=== PATIENT | male | born 1965 | race Caucasian/White ===

== ENCOUNTER → 2016-06-07 | Outpatient (CLI) | payer OTHER ==
--- NOTE | 2016-06-07 13:05 | DIAGNOSTIC IMAGING REPORT ---
RENAL ULTRASOUND CLINICAL HISTORY: Multiple renal cysts. COMPARISON STUDY: Renal ultrasound December 02, 2015. TECHNIQUE: Sonography of the kidneys and the urinary bladder was performed. FINDINGS: The right kidney measures 12.3 x 5.5 x 5.8 cm and the left measures 12 x 6.2 x 6 cm. There is no hydronephrosis. Renal echogenicity, size and cortical thickness are normal. A 1.1 cm cystic lesion within the upper pole of the right kidney likely contains a small calcification. This is unchanged. Note is made of a 0.9 cm round echogenic lesion within the upper pole if the right kidney which is also unchanged. No additional renal lesions are present. IMPRESSION: 1. No hydronephrosis. 2. No change in a 9 mm echogenic lesion within the upper pole of the right kidney. This likely reflects an angiomyolipoma. A follow-up renal ultrasound in one year is recommended. 3. No change in a 1.1 cm cyst within the upper pole of the right kidney that contains a small calcification. Electronically signed by: Reg Pleitez M.D. 06/07/2016 1:04 PM Dictated Date/Time: 06/07/2016 12:55 PM
== END | disposition home or self-care (01) ==
LOC: C.ULTRBC 12:08
PROVIDERS: ATTEND Family Medicine
DX: Q61.02 Congenital multiple renal cysts (principal); N28.9 Disorder of kidney and ureter, unspecified

== ENCOUNTER → 2016-11-28 | Outpatient (CLI) | payer OTHER ==
[2016-11-28 09:33] LABS: BASO % 0.7 %; BASO ABS # 0.07 K/uL (0-0.2); COMPLETE YES; EOS % 4.6 %; HEMATOCRIT 47.5 % (42-52); IG% 0.2 %; LYMPH % 23.4 %; LYMPH ABS # 2.31 K/uL (1.2-3.4); MEAN CELL VOLUME 95.2 fL (80-100); MEAN CORPUSCULAR HEMOGLOBIN 32.1 pg (25-34); MEAN CORPUSCULAR HGB CONC 33.7 g/dl (32-36); MEAN PLATELET VOLUME 10.3 fL (7.4-10.4); MONO % 6.1 %; PLATELET COUNT 254 K/uL (130-400); RED BLOOD COUNT 4.99 M/uL (4.7-6.1); WHITE BLOOD COUNT 9.87 K/uL (4.8-10.8)
[2016-11-28 10:27] LABS: ALT/SGPT 39 U/L (12-78); AST/SGOT 27 U/L (15-37); BLOOD UREA NITROGEN 15 mg/dl (7-18); BUN/CREATININE RATIO 14.9 (10-20); CALCIUM 9.1 mg/dl (8.5-10.1); CARBON DIOXIDE 27 mmol/L (21-32); CHLORIDE 109 mmol/L (98-107); CREATININE 0.98 mg/dl (0.60-1.40); GLUCOSE 97 mg/dl (70-99); POTASSIUM 3.8 mmol/L (3.5-5.1); SODIUM 142 mmol/L (136-145)
[2016-11-28 10:30] LABS: ALB/GLOB RATIO 1.2 (0.9-2); ALKALINE PHOSPHATASE 135 U/L (45-117); CHOLESTEROL 176 mg/dl (0-200); HDL CHOLESTEROL 59 mg/dl; LDL CHOLESTEROL CALCULATED 97 mg/dl; TRIGLYCERIDES 101 mg/dl (0-150); VERY LOW DENSITY LIPOPROT CALC 20 mg/dl
== END | disposition home or self-care (01) ==
LOC: C.LAB1850 08:41
PROVIDERS: ATTEND Physician Assistant
DX: E78.5 Hyperlipidemia, unspecified (principal); K76.0 Fatty (change of) liver, not elsewhere classified; Z13.0 Encounter for screening for diseases of the blood and blood-forming organs and certain disorders involving the immune mechanism

== ENCOUNTER → 2017-02-02 | Outpatient (CLI) | payer OTHER | END | disposition home or self-care (01) | LOC: C.LAB1850 08:25 | PROVIDERS: ATTEND Physician Assistant Medical | DX: Z00.00 Encounter for general adult medical examination without abnormal findings (principal); E78.5 Hyperlipidemia, unspecified; I10 Essential (primary) hypertension ==

== ENCOUNTER 2017-04-28 23:10 | Emergency (ER) | payer OTHER ==
[~2017-04-28] VITALS: Ht 170.2 cm; Wt 82.4 kg
[2017-04-28 23:13] VITALS: TEMP 36.9; Ht 170.2 cm; Wt 82.4 kg
[2017-04-28] MEDS ORDERED: ONDANSETRON INJ 2 MG/ML 2 ML VIAL IV STA (23:27)
[2017-04-28] MEDS ORDERED: MoRPHine SULFATE 4 MG/ML 1 ML CARP\\VIAL IV STA (23:27)
[2017-04-29 00:01] LABS: BASO % 0.3 %; BASO ABS # 0.03 K/uL (0-0.2); EOS % 1.1 %; EOS ABS # 0.13 K/uL (0-0.5); HEMATOCRIT 44.5 % (42-52); HEMOGLOBIN 16.2 g/dL (14.0-18.0); IG# 0.03 K/uL (0.00-0.02); LYMPH % 15.2 %; LYMPH ABS # 1.78 K/uL (1.2-3.4); MEAN CELL VOLUME 93.1 fL (80-100); MEAN CORPUSCULAR HEMOGLOBIN 33.9 pg (25-34); MEAN CORPUSCULAR HGB CONC 36.4 g/dl (32-36); MEAN PLATELET VOLUME 10.1 fL (7.4-10.4); MONO % 4.6 %; MONO ABS # 0.54 K/uL (0.11-0.59); NEUT % 78.5 %; NEUT ABS # 9.21 K/uL (1.4-6.5); PLATELET COUNT 257 K/uL (130-400); RED CELL DISTRIBUTION WIDTH CV 12.3 % (11.5-14.5); WHITE BLOOD COUNT 11.72 K/uL (4.8-10.8)
[2017-04-29 00:19] LABS: ALBUMIN 4.1 gm/dl (3.4-5.0); ALT/SGPT 45 U/L (12-78); AST/SGOT 23 U/L (15-37); BLOOD UREA NITROGEN 15 mg/dl (7-18); CALCIUM 9.1 mg/dl (8.5-10.1); CARBON DIOXIDE 26 mmol/L (21-32); CREATININE 0.94 mg/dl (0.60-1.40); GLUCOSE 94 mg/dl (70-99); LIPASE 245 U/L (73-393); SODIUM 142 mmol/L (136-145)
[2017-04-29 00:24] LABS: ALKALINE PHOSPHATASE 116 U/L (45-117); TOTAL PROTEIN 7.5 gm/dl (6.4-8.2)
[2017-04-29] MEDS ORDERED: OPTIRAY 320 IV PRN (01:30)
[2017-04-29] MEDS ORDERED: LPT10 PO (02:47)
[2017-04-29] MEDS ORDERED: CHLO12TA2 PO (02:49)
[2017-04-29] MEDS ORDERED: ONDANSETRON HOME PACK 4MG OD TAB PO ONE (03:00)
[2017-04-29] MEDS ORDERED: OXYCODONE IR HOME PACK PO ONE (03:00)
[2017-04-29 03:18] VITALS: BP 184/109; PULSE 81; O2SAT 95
--- NOTE | 2017-04-29 03:34 | EMERGENCY ROOM VISIT NOTE ---
History First contact with patient: 23:15 Chief Complaint: ABDOMINAL PAIN Stated Complaint: SEVERE ABD PAIN Nursing Triage Summary: pt c/o lower right abd pain that began earlier today and became worse throughout the day. states he has had diarrhea intermittently for "a couple days." denies n/v. pt alert and oriented x4. pmh elevated cholesterol. History of Present Illness The patient is a 52 year old male who presents to the Emergency Room with complaints of right lower abdominal pain for the past day described as aching, ranging in severity currently 4-10 that occasionally radiates to his testicle. Nothing makes it better or worse. He has had kidney stones before but this feels different. Patient states occasionally he has chest pain for the past few months. Nothing prolonged. Patient denies dyspnea, fever, chills, back pain, urinary symptoms, penile pain. No injury to the area. He is tolerating by mouth fluids and food. Review of Systems See HPI for pertinent positives & negatives. A total of 10 systems reviewed and were otherwise negative. Past Medical/Surgical History Kidney stones Social History Smoking Status: Current Every Day Smoker Drug Use: none Marital Status: Housing Status: lives with family Occupation Status: employed Current/Historical Medications Scheduled Atorvastatin (Atorvastatin Calcium), 10 MG PO DAILY Scheduled PRN Chlorpheniramine Maleate (Chlor-Trimeton Allergy), 12 MG PO DAILY PRN for Allergic Reaction Physical Exam Vital Signs Date Time Temp Pulse Resp B/P (MAP) Pulse Ox O2 Delivery O2 Flow Rate FiO2 04/29/17 03:18 81 20 184/109 95 04/29/17 02:38 80 18 145/103 96 Room Air 04/29/17 01:44 89 20 169/99 98 Room Air 04/29/17 00:38 88 20 146/100 95 Room Air 04/28/17 23:13 36.9 82 18 170/99 95 Room Air Physical Exam VITALS: Vitals are noted on the nurse's note and reviewed by myself. Vital signs hypertensive GENERAL: Pleasant male, in no acute distress, nondiaphoretic, well-developed well-nourished. SKIN: The skin was without rashes, erythema, edema, or bruising. There is no tenting of the skin. Capillary reflex less than 2 seconds. HEAD: Normocephalic atraumatic. EARS: External auditory canals clear EYES: Pupils equal round and reactive to light and accommodation. Conjunctivae without injection, sclerae without icterus. Extraocular movements intact. NOSE: Patent, turbinates without inflammation or discharge. MOUTH: Mucous membranes moist. Pharynx without erythema or exudate. Uvula midline. Airway patent. Tongue does not deviate. NECK: Supple without nuchal rigidity. No lymphadenopathy. No thyromegaly. Cervical spine is nontender. No JVD. HEART: Regular rate and rhythm without murmurs gallops or rubs. LUNGS: Clear to auscultation bilaterally without wheezes, rales or rhonchi. No dullness to percussion. No retractions or accessory muscle use. ABDOMEN: Positive bowel sounds x 4. Normal tympanic percussion. Soft, minimally tender right lower quadrant, no CVA tenderness, without masses or organomegaly. De Jesus sign negative. No guarding or rebound tenderness. exam: Normal male genitalia. No testicular pain. Sheet Folder present MUSCULOSKELETAL: No muscle atrophy, erythema, or edema noted. NEURO: Patient was alert and oriented to person place and time. Normal sensation to light and sharp touch. No focal neurological deficits. Medical Decision & Procedures Laboratory Results 04/28/17 23:45 Red Blood Count 4.78, Mean Corpuscular Volume 93.1, Mean Corpuscular Hemoglobin 33.9, Mean Corpuscular Hemoglobin Concent 36.4, Mean Platelet Volume 10.1, Neutrophils (%) (Auto) 78.5, Lymphocytes (%) (Auto) 15.2, Monocytes (%) (Auto) 4.6, Eosinophils (%) (Auto) 1.1, Basophils (%) (Auto) 0.3, Neutrophils # (Auto) 9.21, Lymphocytes # (Auto) 1.78, Monocytes # (Auto) 0.54, Eosinophils # (Auto) 0.13, Basophils # (Auto) 0.03 04/28/17 23:45 Test 04/28/17 23:45 04/28/17 23:52 04/29/17 00:40 White Blood Count 11.72 K/uL (4.8-10.8) Red Blood Count 4.78 M/uL (4.7-6.1) Hemoglobin 16.2 g/dL (14.0-18.0) Hematocrit 44.5 % (42-52) Mean Corpuscular Volume 93.1 fL (80-100) Mean Corpuscular Hemoglobin 33.9 pg (25-34) Mean Corpuscular Hemoglobin Concent 36.4 g/dl (32-36) Platelet Count 257 K/uL (130-400) Mean Platelet Volume 10.1 fL (7.4-10.4) Neutrophils (%) (Auto) 78.5 % Lymphocytes (%) (Auto) 15.2 % Monocytes (%) (Auto) 4.6 % Eosinophils (%) (Auto) 1.1 % Basophils (%) (Auto) 0.3 % Neutrophils # (Auto) 9.21 K/uL (1.4-6.5) Lymphocytes # (Auto) 1.78 K/uL (1.2-3.4) Monocytes # (Auto) 0.54 K/uL (0.11-0.59) Eosinophils # (Auto) 0.13 K/uL (0-0.5) Basophils # (Auto) 0.03 K/uL (0-0.2) RDW Standard Deviation 42.0 fL (36.4-46.3) RDW Coefficient of Variation 12.3 % (11.5-14.5) Immature Granulocyte % (Auto) 0.3 % Immature Granulocyte # (Auto) 0.03 K/uL (0.00-0.02) Anion Gap 8.0 mmol/L (3-11) Est Creatinine Clear Calc Drug Dose 96.6 ml/min Estimated GFR () 109.1 Estimated GFR (Non- 94.2 BUN/Creatinine Ratio 16.0 (10-20) Calcium Level 9.1 mg/dl (8.5-10.1) Total Bilirubin 0.3 mg/dl (0.2-1) Direct Bilirubin < 0.1 mg/dl (0-0.2) Aspartate Amino Transf (AST/SGOT) 23 U/L (15-37) Alanine Aminotransferase (ALT/SGPT) 45 U/L (12-78) Alkaline Phosphatase 116 U/L (45-117) Troponin I < 0.015 ng/ml (0-0.045) Total Protein 7.5 gm/dl (6.4-8.2) Albumin 4.1 gm/dl (3.4-5.0) Lipase 245 U/L (73-393) Bedside Troponin I < 0.030 ng/ml (0-0.045) Urine Color YELLOW Urine Appearance TURBID (CLEAR) Urine pH 8.5 (4.5-7.5) Urine Specific [place] 1.019 (1.000-1.030) Urine Protein NEG (NEG) Urine Glucose (UA) NEG (NEG) Urine Ketones NEG (NEG) Urine Occult Blood TRACE (NEG) Urine Nitrite NEG (NEG) Urine Bilirubin NEG (NEG) Urine Urobilinogen NEG (NEG) Urine Leukocyte Esterase NEG (NEG) Urine WBC (Auto) 1-5 /hpf (0-5) Urine RBC (Auto) 5-10 /hpf (0-4) Urine Hyaline Casts (Auto) 1-5 /lpf (0-5) Urine Epithelial Cells (Auto) 5-10 /lpf (0-5) Urine Bacteria (Auto) NEG (NEG) Medications Administered Medications (Trade) Dose Ordered Sig/Damaris Route Start Time Stop Time Status Last Admin Dose Admin Oxycodone HCl (Roxicodone Immediate Rel 5MG Home Pack) 1 homepack UD ONCE PO 04/29/17 03:00 04/29/17 03:01 DC 04/29/17 03:11 1 HOMEPACK Ondansetron HCl (ZOFRAN ODT 4MG Home Pack) 1 homepack UD ONCE PO 04/29/17 03:00 04/29/17 03:01 DC 04/29/17 03:11 1 HOMEPACK ED Course Prior records/ancillary studies reviewed. Triage Nursing notes reviewed. Additional history obtained from family. The patient's history was concerning for abdominal pain. Differential diagnosis: Etiologies such as appendicitis, diverticulitis, PUD, biliary pathology, UTI, pancreatitis, obstruction, mesenteric ischemia, aortic pathology, infections, inflammatory bowel disease, renal colic, as well as others were entertained. Physical examination findings: As above. Patient declined pain meds On reassessment the patient felt better. Diagnostics interpreted by me: ECG: Normal sinus, normal intervals, no acute ST-T wave changes. Impression normal sinus rhythm interpreted by myself The labs revealed negative urine. Stable H&H. Urine with hematuria Imaging studies: Chest x-ray with no acute consolidation, pneumothorax. My interpretation Ultrasound and CAT scan read by stat radiology concerning for right renal colic Exam and history seem consistent with right renal colic. Patient's pain was managed. He did not even need any pain meds. He is advised to strain his urine until the stone passes and take medicines as directed and to follow-up urology a few days or here in the ER sooner for fevers, severe pain, vomiting, worsening signs or symptoms or as needed. By the evaluation outlined above emergent etiologies such as appendicitis, diverticulitis, PUD, biliary pathology, UTI, pancreatitis, obstruction, mesenteric ischemia, aortic pathology, infections, inflammatory bowel disease, as well as others were deemed relatively unlikely. The pt informed about the findings as listed above. All questions were answered and pleased with the treatment. Return instructions were outlined and the patient was discharged in stable condition. Outpatient prescription management: Home pack Zofran and OxyIR Referral: The patient was referred back to their primary care physician and urology for follow-up in 2 to 3 days for a recheck of the current condition. Case reviewed with my attending Medical Decision As above Medication Reconcilliation Current Medication List: was personally reviewed by me Blood Pressure Screening Patient's blood pressure: Elevated blood pressure Blood pressure disposition: Referred to PCP Impression Primary Impression: Renal colic on right side Departure Information Dispostion Home / Self-Care Condition GOOD Referrals Antwon Cagle M.D. Forms Call Back Authorization, HOME CARE DOCUMENTATION FORM, IMPORTANT VISIT INFORMATION Patient Instructions Kidney Stones - [facility], [facility] Additional Instructions DO NOT drive, drink alcohol, operate machinery, or perform dangerous activities today. You were given medications in the ER that can affect your ability to safely function or operate a vehicle. Oxycodone Immediate Release (OxyIR) 5mg: Take 1-2 pills every four hours for pain. Avoid alcohol, operating machinery or dangerous equipment, working on ladders or roofs, DRIVING, or situations where being under the influence may be dangerous. It is recommended to use an [id number] stool softener such as Colace, 100mg twice daily while taking this medication to avoid constipation. Zofran 4 mg: Take one every six hours as needed for nausea. Avoid alcohol, operating machinery or dangerous equipment, working on ladders or roofs, DRIVING , or situations where being under the influence may be dangerous. Ibuprofen(Motrin, Advil) may be used for fever or pain. Use 600mg every six hours as needed. Take with food. Avoid using more than 2400mg in a 24 hour period. Do not use 2400mg per day for more than three consecutive days without physician direction. Prolonged inappropriate use can lead to stomach upset or ulcers. This medication can be taken if you need to drive, work, or perform activities which may be dangerous when taking narcotic pain medication. (AND/OR) Acetaminophen(Tylenol) may be used for fever or pain. Use 1000mg every six hours as needed. Avoid using more than 3000mg in a 24 hour period. This medication can be taken if you need to drive, work, or perform activities which may be dangerous when taking narcotic pain medication. Strain your urine and collect all the stones or debris for the urologists. Rest and avoid strenuous activity until your stone passes and symptoms resolve. Drink plenty of fluids. Continue current medications. Return to the ER for worsening abdominal or back pain, vomiting, fevers, passing out, or as needed. Follow up with urology in 2-3 days, call for an appointment.
--- NOTE | 2017-04-29 07:05 | DIAGNOSTIC IMAGING REPORT ---
CHEST ONE VIEW PORTABLE CLINICAL HISTORY: Chest pain. COMPARISON STUDY: Chest radiograph March 05, 2007. FINDINGS: Lung volumes are normal. No pneumothorax or pleural effusion is noted. Cardiomediastinal silhouette is normal. Pulmonary vascularity is normal. No consolidation is identified. IMPRESSION: No acute cardiopulmonary findings. Electronically signed by: Reg Pleitez M.D. 04/29/2017 7:04 AM Dictated Date/Time: 04/29/2017 7:03 AM
--- NOTE | 2017-04-29 07:19 | DIAGNOSTIC IMAGING REPORT ---
APPENDIX ULTRASOUND HISTORY: Right lower quadrant abdominal pain. COMPARISON: None. FINDINGS: Transabdominal scanning of the right lower quadrant was performed. The appendix was not identified. There are no fluid collections or masses within the right lower quadrant. IMPRESSION: Nonvisualization of the appendix. This study is nondiagnostic in regards to evaluation for acute appendicitis. Electronically signed by: Reg Pleitez M.D. 04/29/2017 7:17 AM Dictated Date/Time: 04/29/2017 7:17 AM
--- NOTE | 2017-04-29 07:20 | DIAGNOSTIC IMAGING REPORT ---
SCROTAL ULTRASOUND CLINICAL HISTORY: Right-sided testicular pain. Possible epididymitis. COMPARISON STUDY: None. TECHNIQUE: Grayscale and color and duplex Doppler sonography of the scrotum was performed. FINDINGS: The right testis measures 4.5 x 2.4 x 3.2 cm and the left measures 4.7 x 2.4 x 2.8 cm. There is no testicular mass. Color flow within each testis is symmetric. There is no evidence for epididymitis. There are small bilateral hydroceles and small bilateral epididymal head cysts. IMPRESSION: 1. Normal sonographic appearance of the testes. 2. No evidence for epididymitis. 3. Small bilateral hydroceles and small bilateral epididymal head cysts. Electronically signed by: Reg Pleitez M.D. 04/29/2017 7:18 AM Dictated Date/Time: 04/29/2017 7:17 AM
--- NOTE | 2017-04-29 07:40 | DIAGNOSTIC IMAGING REPORT ---
CT OF THE ABDOMEN AND PELVIS WITH CONTRAST CLINICAL HISTORY: Right lower quadrant abdominal pain. COMPARISON STUDY: Appendix ultrasound April 29, 2017 and renal ultrasound June 07, 2016. TECHNIQUE: Following IV administration of 93 mL of Optiray-320, axial images of the abdomen and pelvis were obtained from the lung bases to the proximal femurs. Images were reviewed in the axial, sagittal, and coronal planes. IV contrast was administered without complication. A dose lowering technique was utilized adhering to the principles of ALARA. CT DOSE: 404.39 mGy.cm FINDINGS: A 4 mm calculus at the right ureterovesical junction results in mild right hydroureteronephrosis. No additional urinary calculi are identified on this contrast enhanced examination. A 9 mm hypodense lesion within the midpole of the right kidney was shown to represent a cyst on prior ultrasound. A 9 mm intermediate attenuation lesion within the posterior cortex of the upper pole of the right kidney shown on axial image 155 of 466 corresponds to the echogenic lesion shown on prior ultrasound. The liver, spleen, adrenal glands, left kidney and pancreas are normal. There is no evidence for a bowel obstruction. The appendix is normal. There is no lymphadenopathy or abscess. Fat-containing bilateral inguinal hernias are noted. IMPRESSION: 1. 4 mm calculus at the right ureterovesical junction which results in mild right hydroureteronephrosis. 2. 9 mm intermediate attenuation lesion within the posterior cortex of the upper pole of the right kidney which corresponds to the echogenic lesion shown on prior ultrasound. This favors an angiomyolipoma given stability and sonographic appearance however a follow-up renal ultrasound in 6 months to ensure stability is recommended. Electronically signed by: Reg Pleitez M.D. 04/29/2017 7:39 AM Dictated Date/Time: 04/29/2017 7:33 AM
== END 2017-04-29 03:20 | disposition home or self-care (01) ==
LOC: C.EDB 23:11 → C.EDA 04-29 03:20
DX: N23 Unspecified renal colic (principal); F17.200 Nicotine dependence, unspecified, uncomplicated; Z87.442 Personal history of urinary calculi

== ENCOUNTER → 2017-05-28 | Outpatient (CLI) | payer OTHER ==
[~2017-05-28] MED LIST: CHLO12TA2 PO; LPT10 PO
--- NOTE | 2017-05-28 12:59 | DIAGNOSTIC IMAGING REPORT ---
(RENAL)RETROPERITON COMP HISTORY: Renal cysts Q61.02 Multiple renal cysts1 year follow-up ultrasound scheduled COMPARISON: 06/07/2016. 04/29/2017. FINDINGS: Right kidney: Maximum dimension 12 cm. 9 mm benign angiomyolipoma upper pole. 1.0 cm midpole cyst with a small calcification. This is unchanged. Normal corticomedullary differentiation and cortical thickness. Left kidney: Maximum dimension 11.9 cm. No evidence for hydronephrosis. Normal corticomedullary differentiation and cortical thickness. Bladder: No bladder wall thickening. The bilateral ureteral jets were identified. IMPRESSION: 1. Stable 9 mm benign angiomyolipoma upper pole right kidney. 2. 1 cm mid/upper pole cyst with associated small calcification. This is unchanged from the prior exam. 3. Normal left kidney. The above report was generated using voice recognition software. It may contain grammatical, syntax or spelling errors. Electronically signed by: Ed Irvin M.D. 05/28/2017 12:58 PM Dictated Date/Time: 05/28/2017 12:54 PM
== END | disposition home or self-care (01) ==
LOC: C.ULTRBC 12:25
PROVIDERS: ATTEND Physician Assistant
DX: Q61.02 Congenital multiple renal cysts (principal); D17.71 Benign lipomatous neoplasm of kidney

== ENCOUNTER → 2017-06-15 | Outpatient (CLI) | payer OTHER ==
[2017-06-15 09:49] LABS: ALBUMIN 3.9 gm/dl (3.4-5.0); ALT/SGPT 47 U/L (12-78); BLOOD UREA NITROGEN 17 mg/dl (7-18); CALCIUM 8.9 mg/dl (8.5-10.1); CARBON DIOXIDE 26 mmol/L (21-32); CREATININE 1.09 mg/dl (0.60-1.40); GLUCOSE 92 mg/dl (70-99); POTASSIUM 3.9 mmol/L (3.5-5.1); SODIUM 140 mmol/L (136-145)
[2017-06-15 10:00] LABS: ALKALINE PHOSPHATASE 101 U/L (45-117); AST/SGOT 32 U/L (15-37); TOTAL PROTEIN 6.9 gm/dl (6.4-8.2)
== END | disposition home or self-care (01) ==
LOC: C.LAB1850 08:01
PROVIDERS: ATTEND Physician Assistant Medical
DX: E78.5 Hyperlipidemia, unspecified (principal); K76.0 Fatty (change of) liver, not elsewhere classified; Z00.00 Encounter for general adult medical examination without abnormal findings

== ENCOUNTER → 2017-06-25 | Outpatient (CLI) | payer OTHER | END | disposition home or self-care (01) | LOC: C.LABSPEC 11:16 | PROVIDERS: ATTEND Urology | DX: N20.0 Calculus of kidney (principal) ==

== ENCOUNTER → 2017-07-03 | Outpatient (CLI) | payer OTHER ==
--- NOTE | 2017-07-04 05:54 | PAP/PSG TECHNICIAN REPORT ---
[facility] [employer] Polysomnogram Report Study name: None Report date: 07/04/2017 Study date: 07/03/2017 Referring Physician: Anabell Foreman PA-C Name: MARIZOL CORBIN Interpreting Physician: Alberto Santo D.O. Date of : 1965 [employer] Design Engineer: Keisha Jimenez [facility]. Sex: Male Age: 52 StudyType: PSG Weight: 187 lbs Height: 52 years, Height 5' 9" Neck Circum: 43 cm BMI: 27.61 Medications: Atorvastatin 10 mg,. Triamcinolone Acetonide 0.1%, Patient History 52 yr. old male here for a diagnostic sleep study with ETC02 in room 6. Patient complains of HTN and loud snoring. ESS . Parameters Monitored NPSG: E1-M2, E2-M1, Fp1-M2, Fp2-M1, F3-M2, F4-M2, F4-M1, C3-M2, C4-M2, C4-M1, O1-M2, O2-M2, O2-M1, T3-M2, T4-M1, P3-M2, P4-M1, CHIN1, CHIN2, HR, EKG, Legs, PFLOW, SNOR, FLOW, CFLOW, Tidal Volume, THOR, ABDO, SpO2, PLTH, CPRESS, ETCO2 Wave, ETCO2, pH Sleep Architecture Sleep Stages Time at Lights Off 10:55:08 PM STAGES Time (min.) TST (%) Time at Lights On 5:41:38 AM Wake 54.0 -- Total Recording Time (TRT) 407.00 min. N1 19.5 6 Total Sleep Period (TSP) 372.5 min. N2 211.5 60 Total Sleep Time (TST) 352.5min. N3 42.5 12 Awake Time 54.0 min. REM 79.0 22 Wake after Sleep Onset 20.0 min. Sleep Efficiency (SE) 87 % Sleep Onset Latency (ARNIE) 34.0 min. Number of Stage 1 Shifts None Awakenings 14 Stage Changes 76 Number of REM periods 13 REM 79.0 22 REM Latency 57.0 min. NREM 273.5 78 Body Position Analysis Supine Right Left Side Prone Vertical Total Sleep Time (min.) 406.5 0.0 0.0 0.00 0.0 0.0 Total Sleep Time (%) 100% 0% 0% 0 0% N/A% Total Sleep Time REM (min.) 79.0 0.0 0.0 None 0.0 0.0 Total Sleep Time NREM (min.) 273.5 0.0 0.0 None 0.0 0.0 Intermittent Wake (min.) 54.0 0.0 0.0 None 0.0 0.0 Total Sleep Period (%) 100% None None None None None Arousals Myoclonus (PLM) * Events Count Index Events Count Index Spontaneous 3 1 Events Awake (PLMW) 67 74.4 Respiratory 7 2.0 Events Asleep w/ Arousal (PLMA) 21 3.6 PLM 21 4 Events Asleep w/o Arousal (PLMS) 72 12.3 Snoring 15 3 Total Asleep 93 15.8 Total 46 8 Total 160 24 Respiratory Analysis * CA OA MA CH H RERA Total Count 0 0 0 0 122 1 122 Index 0.0 0.0 0.0 0 20.8 0 20.9 Mean Duration 0.0 0.0 0.0 0.00 20.1 19.8 20.1 Longest Duration 0.0 0.0 0.0 0.00 0.0 19.8 59.8 Respiratory Event Summary Total Supine ~Supine Right Left Prone REM NREM Apneas Count 0 0 N/A N/A N/A N/A 0 0 Index 0.0 0 N/A N/A N/A N/A 0 0 Hypopneas (4% Desat) Count 122 122 N/A N/A N/A N/A 45 77 Index 20.8 20.8 N/A N/A N/A N/A 34.2 16.9 Apneas & All Hypopneas Count 122 122 N/A N/A N/A N/A 45 77 Index 20.8 21 N/A N/A N/A N/A 34.2 16.9 Respiratory Events (Breakdown Man+All Hyp+RERA) Count 122 123 N/A N/A N/A N/A 45 77 Index 20.9 21 N/A N/A N/A N/A 34.2 17.1 Respiratory Related Arousal Count 7 123 N/A N/A N/A N/A 5 7 Index 2.0 2 N/A N/A N/A N/A 4 2 Snoring Analysis Supine Right Left Prone REM NREM Total Snore duration 53.2 min Snores count 1,832 N/A N/A N/A 317 1,515 1,832 Snore mean duration 1.7 Sec Snores index 312 N/A N/A N/A 240.8 332.4 311.8 TST with snoring (%) 15.1% SpO2 Analysis Total REM NREM Awake <50% 0.0 min. 0.0 min. 0.0 min. 0.0 min. 51 - 60% 0.0 min. 0.0 min. 0.0 min. 0.0 min. 61 - 70% 0.0 min. 0.0 min. 0.0 min. 0.0 min. 71 - 80% 0.2 min. 0.2 min. 0.0 min. 0.0 min. 81 - 90% 133.8 min. 30.7 min. 98.9 min. 4.3 min. 91 - 100% 272.4 min. 48.1 min. 174.6 min. 49.7 min. Average 91 91 91 93 Minimum SpO2 78 78 84 84 Desaturation Event Index 17.0 28.9 15.4 8.9 # Desat. Events below 89% 63 29 32 2 Time(%) with Saturation below 89% 3.8 1.8 1.8 0.2 Time(min.) with Saturation below 89% 15.3 7.2 7.3 0.9 Heart Rate Analysis End Tidal CO2 Analysis Min (bpm) Max (bpm) Average (bpm) TSP (mins) % of TSP Awake 60 95 75 Above 55 mmHg 0.0 0.0 NREM 57 95 68 50-55 mmHg 0.0 0.0 REM 56 84 66 45-50 mmHg 1.0 0.3 Overall 56 95 68 40-45 mmHg 263.6 74.8 35-40 mmHg 74.2 21.1 30-35 mmHg 12.0 3.4 Average ETCO2 0.2 Supplemental O2 Values Minimum O2 level: None Value Start Time End Time [employer] Engineer Comments Mr. Corbin slept in the supine position. No cardiac arrhythmia or PLMs noted. No bruxism noted. Snoring was noted and scored as a 4 on a scale of 0 through 5. (0=no snoring, 5=snoring loud enough to be heard through a closed door or down the [address] way) Mr. Corbin did not wake to use the restroom during the night. Mr. Corbin stated, I did not sleep well. The final report will be interpreted and signed by a sleep physician. The completed physician report will then be placed in the patient medical record. Therapy (cm H2O) 0 TIB (min.) 406.5 TST (min.) 352.5 Sleep Onset (min.) 34.0 REM Onset From Sleep (min.) 57.0 Sleep Efficiency % 87 Wakefulness (%) 13 Wakefulness (min.) 54.0 NREM 1 (%) 6 NREM 1 (min.) 19.5 NREM 2 (%) 60 NREM 2 (min.) 211.5 NREM 3 (%) 12 NREM 3 (min.) 42.5 REM (%) 22 REM (min.) 79.0 # Arousals 46 Arousal Index 8 # Snore 1,832 Snore Index 311.8 AHI 20.8 AHI Supine 21 AHI Non-Supine N/A NREM AHI 16.9 REM AHI 34.2 RDI 20.9 # Obstructive Apnea 0 # Central Apnea 0 # Mixed Apnea 0 # Hypopneas 122 RERAs 1 Total Respiratory Events 123 Time Below SpO2 89% (min.) 14.4 Mean NREM SpO2 (%) 91 Mean REM SpO2 (%) 91 Mean Sleep SpO2 (%) 91 Min NREM SpO2 (%) 84 Min REM SpO2 (%) 78 Position Supine (min.) 406.5 Position Non-supine (min.) 0.0 LM Index Sleep 15.8 LM Index NREM 14.7 LM Index REM 19.7 Mean Heart Rate (bpm) 68 Min Heart Rate (bpm) 56
--- NOTE | 2017-07-04 17:56 | Sleep Study ---
Sleep Study Report Date of Service: 07/03/2017 Sleep Study Report CLINICAL DATA: The patient is a 52-year-old male with a BMI of 27.61. He is referred by Anabell Foreman PA-C for a sleep study. His symptoms include snoring and hypersomnolence. His Leander Sleepiness Scale score is 13 out of a possible 24. This was an in-lab overnight polysomnography. SLEEP ARCHITECTURE: The patient had a sleep period time of 372.5 minutes. The total sleep time was 352.5 minutes. The sleep efficiency was minimally decreased to 87 percent. Sleep latency was modestly prolonged to 34 minutes. REM latency was normal at 57 minutes. Sleep consisted of stage N1 6 percent, stage N2 60 percent, stage N3 12 percent , stage REM 22 percent. AROUSAL DATA: The patient had a total of 46 arousals including 3 spontaneous arousals, 7 respiratory arousals, 21 PLM arousals, and 15 snoring arousals. The arousal index is 8. PLM DATA: The patient had a total of 93 periodic limb movements of sleep for a PLM index of 15.8. There were 21 arousals associated with limb movements for a PLM arousal index of 3.6. EKG: The cardiac rates 56-95 beats per minute. The average heart rate was 68 beats per minute. No a arrhythmias were noted. RESPIRATORY DATA: The patient had a total of 122 respiratory events, all hypopneas. Hypopneas were scored according to the 4 percent desaturation rule. There was 1 RERAs. The mean duration of the hypopneas was 20.1 seconds. The apnea-hypopnea index was moderately elevated at 20.8 events per hour. This reflects moderate sleep apnea. OXIMETRY DATA: The average saturation for the night was 91 percent. The minimum saturation was 78 percent. There was a total of 15.3 minutes with saturations less than 89 percent. QUANTITATIVE ANALYST DEVELOPER COMMENTS: The patient slept in the supine position. No cardiac arrhythmia noted. No bruxism noted. Snoring was noted and scored as a 4 on a scale of 0 through 5. The patient did not awaken to use the restroom during the night. He stated he did not sleep well. IMPRESSIONS: 1. Moderate obstructive sleep apnea COMMENTS: The sleep efficiency was near normal. Sleep architecture was near normal. There was a modest number of limb movements but with few arousals. He had moderate sleep apnea as assessed by the apnea-hypopnea index. There were desaturations as low as 78 percent. This did occur during respiratory events and during REM sleep. He did spend almost the entire night supine. The patient has significant symptoms and he has hypertension. Treatment would be indicated. RECOMMENDATIONS: 1. It is advised that the patient be given a trial of nasal CPAP. This could be done by referring him for a CPAP titration. Alternatively he could be treated with auto CPAP. 2. It is suggested that the patient avoid sleeping in the supine position. Typically there more respiratory events and snoring while supine. 3. The patient should be advised the appropriate principles of sleep hygiene including having a regular sleep-wake schedule and allowing approximately 7.5-8 hours of sleep per night. Copies To 1: Alberto Santo, ; Anabell Foreman PAC
== END | disposition home or self-care (01) ==
LOC: C.NEUR 20:00
PROVIDERS: ATTEND Physician Assistant Medical
DX: G47.10 Hypersomnia, unspecified (principal); I10 Essential (primary) hypertension; R06.83 Snoring